=== PATIENT | female | born 1975 | race Native Hawaiian/Other Pacific Islander ===

== ENCOUNTER 2017-12-03 10:02 | Outpatient (CLI) | payer BC | END 2017-12-03 19:45 | disposition home or self-care (01) | LOC: MAMMO 10:02 | DX: Z12.31 Encounter for screening mammogram for malignant neoplasm of breast (principal) ==

== ENCOUNTER 2018-01-23 09:54 | Outpatient (CLI) | payer BC | END 2018-01-23 20:30 | disposition home or self-care (01) | LOC: US 09:54 | DX: R92.2 Inconclusive mammogram (principal) ==

== ENCOUNTER 2018-06-03 10:24 | Outpatient (CLI) | payer BC | END 2018-06-03 22:36 | disposition home or self-care (01) | LOC: US 10:24 | DX: D24.1 Benign neoplasm of right breast (principal); N60.11 Diffuse cystic mastopathy of right breast; N60.12 Diffuse cystic mastopathy of left breast ==

== ENCOUNTER 2018-12-06 10:06 | Outpatient (CLI) | payer BC | END 2018-12-06 19:21 | disposition home or self-care (01) | LOC: MAMMO 10:06 | DX: Z12.31 Encounter for screening mammogram for malignant neoplasm of breast (principal) ==

== ENCOUNTER 2020-02-20 11:26 | Outpatient (CLI) | payer BC | END 2020-02-20 18:59 | disposition home or self-care (01) | LOC: MAMMO 11:26 | PROVIDERS: ATTEND Obstetrics & Gynecology | DX: Z12.31 Encounter for screening mammogram for malignant neoplasm of breast (principal) ==